=== PATIENT | male | born 1940 | race Caucasian/White ===

== ENCOUNTER 2018-06-20 10:21 | Inpatient (IN) ==
[2018-06-20] MEDS ORDERED: ONDANSETRON 4 MG/2 ML VIAL IV PRN (11:48)
[2018-06-20] MEDS ORDERED: DUTASTERIDE 0.5 MG CAPSULE PO PRN (11:53)
[2018-06-20] MEDS ORDERED: BISACODYL 5 MG TABLET PO ONE (12:00)
[2018-06-20 12:45] LABS: Basophils # 0.1 10*3/uL (0.0-0.2); Eosinophils # 0.9 10*3/uL (0.0-0.87); Eosinophils % 12.7 % (0.00-10.9); Hemoglobin 9.6 GM/DL (14.0-18.0); Immature Granulocytes % 0.4 %; Immature Granulocytes Absolute 0.03 #; Lymphocytes # 1.4 10*3/uL (1.4-4.0); Lymphocytes % 20.1 % (21.2-54.2); Mean Corpuscular Hemoglobin 30 PG (27-34); Mean Corpuscular Volume 92.6 FL (87-102); Mean Platelet Volume 10.9 FL (9.6-12.0); Monocytes # 0.9 10*3/uL (0.11-0.8); Monocytes % 12.4 % (1.7-12.7); Neutrophils # 3.6 10*3/uL (1.4-7.4); Neutrophils % 53.4 % (38.7-73.9); Platelet Count 143 T/CUMM (130-400); Red Blood Count 3.24 MC/CUMM (3.8-5.5); Red Cell Distribution Width 14.5 % (9.3-17.3); White Blood Count 6.8 T/CUMM (4-12)
[2018-06-20 13:12] LABS: Calcium 8.3 MG/DL (8.5-10.1); INR 1.4; Osmolality,Calculated 275.1 MOS/KG (273-304); PT Patient Result 14.8 SECS; Potassium 4.5 MMOL/L (3.5-5.1)
[2018-06-20 13:28] LABS: Eosinophils 11 % (0-10); Hypochromasia Slight; Lymphocytes 23 % (20-55); Microcytosis Slight; Ovalocytes Slight; Platelet Estimate Adequate; Reactive Lymphocytes Few; Segmented Neutrophils 58 % (50-85); Total Cells Counted 100
[2018-06-20] MEDS: HEPARIN DRIP 25,000 UNITS/500 ML PREMIX IV SCH (14:02)
[2018-06-20] MEDS: traMADol 50 MG TABLET PO SCH ×2 (14:50→20:46)
[2018-06-20] MEDS ORDERED: POLYETHYLENE GLYCOL POWDER 255 GM BOTTLE PO ONE (15:00)
[2018-06-20] MEDS: MUPIROCIN 2% OINT 22 GM TUBE TOP SCH ×2 (18:56→20:47)
[2018-06-20] MEDS: CARVEDILOL 6.25 MG TABLET PO SCH (20:46)
[2018-06-20] MEDS ORDERED: MAGNESIUM CITRATE 300 ML BOTTLE PO ONE (21:00)
[2018-06-21] MEDS: LEVOTHYROXINE 50 MCG TABLET PO SCH (06:15)
[2018-06-21 07:45] LABS: Eosinophils % 14.9 % (0.00-10.9); Hematocrit 28.5 VOL% (42.0-52.0); Hemoglobin 9.1 GM/DL (14.0-18.0); Lymphocytes % 23.5 % (21.2-54.2); Mean Corpuscular HGB Conc 31.9 GM/DL (32-36); Mean Corpuscular Hemoglobin 29 PG (27-34); Mean Corpuscular Volume 92.2 FL (87-102); Mean Platelet Volume 10.6 FL (9.6-12.0); Monocytes % 11.4 % (1.7-12.7); Neutrophils % 48.9 % (38.7-73.9); Platelet Count 163 T/CUMM (130-400); Red Blood Count 3.09 MC/CUMM (3.8-5.5); Red Cell Distribution Width 14.5 % (9.3-17.3); White Blood Count 5.8 T/CUMM (4-12)
[2018-06-21 07:46] LABS: Basophils # 0.1 10*3/uL (0.0-0.2); Eosinophils # 0.9 10*3/uL (0.0-0.87); INR 1.4; Immature Granulocytes % 0.3 %; Immature Granulocytes Absolute 0.02 #; Lymphocytes # 1.4 10*3/uL (1.4-4.0); Monocytes # 0.7 10*3/uL (0.11-0.8); Neutrophils # 2.8 10*3/uL (1.4-7.4); PT Patient Result 14.1 SECS
[2018-06-21 08:01] LABS: Osmolality,Calculated 275.8 MOS/KG (273-304); Potassium 4.4 MMOL/L (3.5-5.1)
[2018-06-21 08:37] LABS: Band Neutrophils 4 % (0-10); Eosinophils 8 % (0-10); Lymphocytes 24 % (20-55); Platelet Estimate Normal; Poikilocytosis Slight; Segmented Neutrophils 59 % (50-85); Total Cells Counted 100
[2018-06-21 08:38] LABS: Anisocytosis 1+
[2018-06-21] MEDS ORDERED: PROPOFOL 200 MG/20 ML VIAL IV ONE (09:25)
[2018-06-21] MEDS ORDERED: LIDOCAINE 100 MG/5 ML SYRINGE ONE (09:25)
[2018-06-21] MEDS: TORSEMIDE 20 MG TABLET PO SCH (12:27)
[2018-06-21] MEDS: CARVEDILOL 6.25 MG TABLET PO SCH ×2 (12:27→20:48)
[2018-06-21] MEDS: traMADol 50 MG TABLET PO SCH ×3 (12:27→20:48)
[2018-06-21] MEDS: MUPIROCIN 2% OINT 22 GM TUBE TOP SCH ×3 (12:28→20:49)
[2018-06-21] MEDS: TAMSULOSIN 0.4 MG CAPSULE PO SCH (12:28)
[2018-06-22] MEDS: LEVOTHYROXINE 50 MCG TABLET PO SCH (06:06)
[2018-06-22] MEDS ORDERED: PROPOFOL 200 MG/20 ML VIAL IV ONE (09:00)
[2018-06-22] MEDS ORDERED: LIDOCAINE 2% 5 ML VIAL ONE (09:00)
[2018-06-22] MEDS: TORSEMIDE 20 MG TABLET PO SCH (13:07)
[2018-06-22] MEDS: CARVEDILOL 6.25 MG TABLET PO SCH ×2 (13:07→21:06)
[2018-06-22] MEDS: TAMSULOSIN 0.4 MG CAPSULE PO SCH (13:08)
[2018-06-22] MEDS: MUPIROCIN 2% OINT 22 GM TUBE TOP SCH ×3 (13:08→21:06)
[2018-06-22] MEDS: traMADol 50 MG TABLET PO SCH ×3 (13:08→21:07)
[2018-06-22] MEDS: IRON SUCROSE 200 MG in SODIUM CHLORIDE 0.9% 100 ML IV SCH (13:30)
[2018-06-22] MEDS: HEPARIN DRIP 25,000 UNITS/500 ML PREMIX IV SCH ×2 (14:40→17:00)
[2018-06-22] MEDS: WARFARIN 5 MG TABLET PO SCH (18:45)
[2018-06-23] MEDS: HEPARIN DRIP 25,000 UNITS/500 ML PREMIX IV SCH ×2 (01:40→18:40)
[2018-06-23] MEDS: LEVOTHYROXINE 50 MCG TABLET PO SCH (08:03)
[2018-06-23 09:29] LABS: INR 1.3; PT Patient Result 13.5 SECS
[2018-06-23] MEDS: traMADol 50 MG TABLET PO SCH ×3 (09:30→21:21)
[2018-06-23] MEDS: IRON SUCROSE 200 MG in SODIUM CHLORIDE 0.9% 100 ML IV SCH (09:31)
[2018-06-23] MEDS: TORSEMIDE 20 MG TABLET PO SCH (09:31)
[2018-06-23] MEDS: CARVEDILOL 6.25 MG TABLET PO SCH ×2 (09:31→21:07)
[2018-06-23] MEDS: TAMSULOSIN 0.4 MG CAPSULE PO SCH (09:31)
[2018-06-23] MEDS: WARFARIN 5 MG TABLET PO SCH (19:17)
[2018-06-23] MEDS: MUPIROCIN 2% OINT 22 GM TUBE TOP SCH ×2 (21:08→22:08)
[2018-06-24] MEDS: LEVOTHYROXINE 50 MCG TABLET PO SCH (06:34)
[2018-06-24] MEDS: IRON SUCROSE 200 MG in SODIUM CHLORIDE 0.9% 100 ML IV SCH (08:44)
[2018-06-24] MEDS: TORSEMIDE 20 MG TABLET PO SCH (09:00)
[2018-06-24] MEDS: TAMSULOSIN 0.4 MG CAPSULE PO SCH (09:00)
[2018-06-24] MEDS: traMADol 50 MG TABLET PO SCH ×3 (09:00→20:07)
[2018-06-24] MEDS: CARVEDILOL 6.25 MG TABLET PO SCH ×2 (09:30→20:06)
[2018-06-24] MEDS ORDERED: COLCHICINE 0.6 MG TABLET PO ONE ×2 (16:24→18:53)
[2018-06-24] MEDS: WARFARIN 5 MG TABLET PO SCH (18:50)
[2018-06-24] MEDS: MUPIROCIN 2% OINT 22 GM TUBE TOP SCH ×3 (20:05→20:09)
[2018-06-25] MEDS: HEPARIN DRIP 25,000 UNITS/500 ML PREMIX IV SCH ×2 (00:13→09:24)
[2018-06-25 06:28] LABS: INR 1.6; PT Patient Result 16.8 SECS
[2018-06-25] MEDS: LEVOTHYROXINE 50 MCG TABLET PO SCH (06:48)
[2018-06-25] MEDS: CARVEDILOL 6.25 MG TABLET PO SCH ×2 (08:30→21:22)
[2018-06-25] MEDS: TAMSULOSIN 0.4 MG CAPSULE PO SCH (08:30)
[2018-06-25] MEDS: TORSEMIDE 20 MG TABLET PO SCH (08:30)
[2018-06-25] MEDS: MUPIROCIN 2% OINT 22 GM TUBE TOP SCH ×3 (08:31→21:22)
[2018-06-25] MEDS: traMADol 50 MG TABLET PO SCH ×5 (10:38→21:22)
[2018-06-25] MEDS: WARFARIN 5 MG TABLET PO SCH (17:51)
[2018-06-26] MEDS: HEPARIN DRIP 25,000 UNITS/500 ML PREMIX IV SCH (04:14)
[2018-06-26] MEDS: LEVOTHYROXINE 50 MCG TABLET PO SCH (06:50)
[2018-06-26] MEDS: traMADol 50 MG TABLET PO SCH ×3 (10:02→20:50)
[2018-06-26] MEDS: CARVEDILOL 6.25 MG TABLET PO SCH ×2 (10:02→20:50)
[2018-06-26] MEDS: MUPIROCIN 2% OINT 22 GM TUBE TOP SCH ×3 (10:03→20:51)
[2018-06-26] MEDS: TAMSULOSIN 0.4 MG CAPSULE PO SCH (10:03)
[2018-06-26] MEDS: TORSEMIDE 20 MG TABLET PO SCH (10:03)
[2018-06-26] MEDS ORDERED: HYDROCORTISONE 1% CREAM 28 GM TUBE TOP PRN (10:12)
[2018-06-26 10:28] LABS: Basophils % 0.7 % (0.0-0.8); Eosinophils # 0.6 10*3/uL (0.0-0.87); Eosinophils % 10.9 % (0.00-10.9); Hematocrit 24.4 VOL% (42.0-52.0); Hemoglobin 8.1 GM/DL (14.0-18.0); Immature Granulocytes % 0.7 %; Immature Granulocytes Absolute 0.04 #; Lymphocytes # 1.5 10*3/uL (1.4-4.0); Lymphocytes % 25.3 % (21.2-54.2); Mean Corpuscular HGB Conc 33.2 GM/DL (32-36); Mean Corpuscular Hemoglobin 30 PG (27-34); Mean Corpuscular Volume 89.4 FL (87-102); Mean Platelet Volume 11.6 FL (9.6-12.0); Monocytes % 16.5 % (1.7-12.7); Neutrophils # 2.7 10*3/uL (1.4-7.4); Neutrophils % 45.9 % (38.7-73.9); Platelet Count 152 T/CUMM (130-400); Red Blood Count 2.73 MC/CUMM (3.8-5.5); Red Cell Distribution Width 14.6 % (9.3-17.3); White Blood Count 5.8 T/CUMM (4-12)
[2018-06-26 10:36] LABS: Calcium 8.6 MG/DL (8.5-10.1); Osmolality,Calculated 275.1 MOS/KG (273-304)
[2018-06-26 10:54] LABS: Band Neutrophils 4 % (0-10); Eosinophils 18 % (0-10); Lymphocytes 21 % (20-55); Platelet Estimate Adequate; Segmented Neutrophils 49 % (50-85); Total Cells Counted 100
[2018-06-26 10:55] LABS: Anisocytosis 1+
[2018-06-26] MEDS ORDERED: MAGNESIUM SULF RIDER 4 GM in PREMIX 1 EACH IV PRN (11:57)
[2018-06-26] MEDS ORDERED: MAGNESIUM SULF RIDER 2 GM in PREMIX 1 EACH IV PRN (11:57)
[2018-06-26] MEDS ORDERED: SODIUM CHLORIDE 0.9% 1,000 ML IV PRN (12:14)
[2018-06-26] MEDS ORDERED: ALBUTEROL 1.25 MG/3 ML NEB RESP TX PRN (13:55)
[2018-06-26] MEDS: WARFARIN 5 MG TABLET PO SCH (17:30)
[2018-06-26] MEDS: MAGNESIUM CHLORIDE 64 MG TABLET PO SCH (20:50)
[2018-06-27 06:11] LABS: Basophils % 0.7 % (0.0-0.8); Eosinophils # 0.8 10*3/uL (0.0-0.87); Hematocrit 28.6 VOL% (42.0-52.0); Hemoglobin 9.3 GM/DL (14.0-18.0); Immature Granulocytes % 0.7 %; Immature Granulocytes Absolute 0.04 #; Lymphocytes # 1.5 10*3/uL (1.4-4.0); Lymphocytes % 25.9 % (21.2-54.2); Mean Corpuscular HGB Conc 32.5 GM/DL (32-36); Mean Corpuscular Hemoglobin 29 PG (27-34); Mean Corpuscular Volume 89.9 FL (87-102); Mean Platelet Volume 10.7 FL (9.6-12.0); Monocytes % 17.1 % (1.7-12.7); Neutrophils # 2.4 10*3/uL (1.4-7.4); Neutrophils % 41.6 % (38.7-73.9); Platelet Count 159 T/CUMM (130-400); Red Blood Count 3.18 MC/CUMM (3.8-5.5); Red Cell Distribution Width 14.6 % (9.3-17.3); White Blood Count 5.8 T/CUMM (4-12)
[2018-06-27 06:25] LABS: INR 2.2
[2018-06-27] MEDS: LEVOTHYROXINE 50 MCG TABLET PO SCH (06:34)
[2018-06-27 06:38] LABS: Eosinophils 19 % (0-10); Hypochromasia 1+; Lymphocytes 19 % (20-55); Platelet Estimate Normal; Segmented Neutrophils 45 % (50-85); Total Cells Counted 100
[2018-06-27] MEDS ORDERED: PANTOPRAZOLE 40 MG TABLET PO SCH (09:00)
[2018-06-27] MEDS: TORSEMIDE 20 MG TABLET PO SCH (09:11)
[2018-06-27] MEDS: TAMSULOSIN 0.4 MG CAPSULE PO SCH (09:11)
[2018-06-27] MEDS: CARVEDILOL 6.25 MG TABLET PO SCH (09:11)
[2018-06-27] MEDS: MAGNESIUM CHLORIDE 64 MG TABLET PO SCH (09:11)
[2018-06-27] MEDS: MUPIROCIN 2% OINT 22 GM TUBE TOP SCH (09:11)
[2018-06-27] MEDS: traMADol 50 MG TABLET PO SCH (09:12)
[2018-06-27] MEDS: HEPARIN DRIP 25,000 UNITS/500 ML PREMIX IV SCH (11:30)
[2018-06-27 13:44] VITALS: BP 95/52
== END 2018-06-27 15:40 | disposition home or self-care (01) | DRG 812 ==
LOC: N.2W → N.5E 10:21
PROVIDERS: ADMIT Internal Medicine Gastroenterology; ATTEND Internal Medicine Gastroenterology

== ENCOUNTER 2019-03-13 10:34 | Inpatient (IN) ==
[2019-03-13] MEDS ORDERED: traZODone 50 MG TABLET PO PRN (14:16)
[2019-03-13] MEDS ORDERED: DOCUSATE SODIUM 100 MG CAPSULE PO PRN (14:16)
[2019-03-13 14:49] LABS: Basophils # 0.1 10*3/uL (0.0-0.2); Basophils % 0.7 % (0.0-0.8); Eosinophils # 0.5 10*3/uL (0.0-0.87); Eosinophils % 5.9 % (0.00-10.9); Hematocrit 26.1 VOL% (42.0-52.0); Hemoglobin 8.5 GM/DL (14.0-18.0); Immature Granulocytes % 1.3 %; Immature Granulocytes Absolute 0.12 #; Lymphocytes # 1.2 10*3/uL (1.4-4.0); Lymphocytes % 12.8 % (21.2-54.2); Mean Corpuscular HGB Conc 32.6 GM/DL (32-36); Mean Corpuscular Volume 91.6 FL (87-102); Mean Platelet Volume 9.7 FL (9.6-12.0); Monocytes % 14.4 % (1.7-12.7); Neutrophils % 64.9 % (38.7-73.9); Platelet Count 319 T/CUMM (130-400); Red Blood Count 2.85 MC/CUMM (3.8-5.5); Red Cell Distribution Width 14.7 % (9.3-17.3); White Blood Count 9.2 T/CUMM (4-12)
[2019-03-13 15:09] LABS: Albumin 2.8 G/DL (3.4-5.0); Bilirubin,Total 1.8 MG/DL (0.2-1.0); Osmolality,Calculated 249.6 MOS/KG (273-304); Total Protein 6.6 G/DL (6.4-8.3)
[2019-03-13] MEDS ORDERED: POLYETHYLENE GLYCOL POWDER 17 GM PACK PO SCH (16:30)
[2019-03-13] MEDS: FUROSEMIDE 40 MG/4 ML VIAL IV SCH (18:02)
[2019-03-13] MEDS: DOCUSATE SODIUM 100 MG CAPSULE PO SCH (18:02)
[2019-03-13 18:43] LABS: INR 1.5; PT Patient Result 16.4 SECS
[2019-03-13] MEDS: POLYETHYLENE GLYCOL POWDER 17 GM PACK PO SCH (20:32)
[2019-03-13] MEDS: ENOXAPARIN 100 MG/ML SYRINGE SUBCUT SCH (21:30)
[2019-03-14 05:27] LABS: Basophils # 0.1 10*3/uL (0.0-0.2); Basophils % 1.1 % (0.0-0.8); Eosinophils # 0.6 10*3/uL (0.0-0.87); Eosinophils % 7.7 % (0.00-10.9); Hematocrit 26.6 VOL% (42.0-52.0); Hemoglobin 8.5 GM/DL (14.0-18.0); Immature Granulocytes % 1.7 %; Immature Granulocytes Absolute 0.13 #; Lymphocytes # 1.2 10*3/uL (1.4-4.0); Lymphocytes % 15.9 % (21.2-54.2); Mean Corpuscular Volume 92.7 FL (87-102); Mean Platelet Volume 9.9 FL (9.6-12.0); Monocytes % 16.9 % (1.7-12.7); Neutrophils % 56.7 % (38.7-73.9); Platelet Count 340 T/CUMM (130-400); Red Blood Count 2.87 MC/CUMM (3.8-5.5); Red Cell Distribution Width 14.8 % (9.3-17.3); White Blood Count 7.5 T/CUMM (4-12)
[2019-03-14 06:15] LABS: Calcium 7.8 MG/DL (8.5-10.1); Osmolality,Calculated 252.4 MOS/KG (273-304); Thyroid Stimulating Hormone 9.08 uIU/ml (0.358-3.74)
[2019-03-14 06:33] LABS: Band Neutrophils 1 % (0-10); Eosinophils 4 % (0-10); Hypochromasia 1+; Lymphocytes 13 % (20-55); Ovalocytes Slight; Platelet Estimate Adequate; Segmented Neutrophils 68 % (50-85); Total Cells Counted 100
[2019-03-14] MEDS: PANTOPRAZOLE 40 MG TABLET PO SCH (09:52)
[2019-03-14] MEDS: FUROSEMIDE 40 MG/4 ML VIAL IV SCH (09:52)
[2019-03-14] MEDS: DOCUSATE SODIUM 100 MG CAPSULE PO SCH ×2 (09:52→22:58)
[2019-03-14] MEDS: ENOXAPARIN 100 MG/ML SYRINGE SUBCUT SCH ×2 (09:54→22:57)
[2019-03-14] MEDS: POLYETHYLENE GLYCOL POWDER 17 GM PACK PO SCH ×2 (09:58→22:57)
[2019-03-14] MEDS: ASPIRIN EC 81 MG TABLET PO SCH (11:08)
[2019-03-14] MEDS: CARVEDILOL 6.25 MG TABLET PO SCH ×2 (11:08→22:58)
[2019-03-14] MEDS: WARFARIN 3 MG TABLET PO SCH (17:37)
[2019-03-14] MEDS: PARoxetine 10 MG TABLET PO SCH (17:37)
[2019-03-14] MEDS: SODIUM CHLORIDE 0.65% NASAL SPRAY 45 ML BOTTLE BOTH NARES SCH (22:59)
[2019-03-14] MEDS: MUPIROCIN 2% OINT 22 GM TUBE TOP SCH (23:08)
[2019-03-15 05:43] LABS: Basophils # 0.1 10*3/uL (0.0-0.2); Basophils % 0.9 % (0.0-0.8); Eosinophils # 0.5 10*3/uL (0.0-0.87); Eosinophils % 7.1 % (0.00-10.9); Hematocrit 25.2 VOL% (42.0-52.0); Hemoglobin 8.2 GM/DL (14.0-18.0); Immature Granulocytes % 1.3 %; Immature Granulocytes Absolute 0.09 #; Lymphocytes # 1.5 10*3/uL (1.4-4.0); Lymphocytes % 21.1 % (21.2-54.2); Mean Corpuscular HGB Conc 32.5 GM/DL (32-36); Mean Corpuscular Volume 91.6 FL (87-102); Mean Platelet Volume 9.4 FL (9.6-12.0); Monocytes % 20.6 % (1.7-12.7); Platelet Count 319 T/CUMM (130-400); Red Blood Count 2.75 MC/CUMM (3.8-5.5); Red Cell Distribution Width 14.6 % (9.3-17.3); White Blood Count 6.9 T/CUMM (4-12)
[2019-03-15 05:56] LABS: INR 1.4; PT Patient Result 14.7 SECS
[2019-03-15 06:01] LABS: Calcium 7.8 MG/DL (8.5-10.1); Osmolality,Calculated 254.4 MOS/KG (273-304)
[2019-03-15] MEDS: LEVOTHYROXINE 88 MCG TABLET PO SCH (06:07)
[2019-03-15 06:16] LABS: Eosinophils 17 % (0-10); Hypochromasia 1+; Lymphocytes 18 % (20-55); Metamyelocytes 1 %; Segmented Neutrophils 52 % (50-85); Total Cells Counted 100
[2019-03-15 06:17] LABS: Microcytosis Slight; Platelet Estimate Normal
[2019-03-15] MEDS: PANTOPRAZOLE 40 MG TABLET PO SCH (09:30)
[2019-03-15] MEDS: DOCUSATE SODIUM 100 MG CAPSULE PO SCH ×2 (09:30→22:26)
[2019-03-15] MEDS: PARoxetine 10 MG TABLET PO SCH (09:30)
[2019-03-15] MEDS: ASPIRIN EC 81 MG TABLET PO SCH (09:30)
[2019-03-15] MEDS: FUROSEMIDE 40 MG TABLET PO SCH (09:30)
[2019-03-15] MEDS: SODIUM CHLORIDE 0.65% NASAL SPRAY 45 ML BOTTLE BOTH NARES SCH ×3 (09:31→22:27)
[2019-03-15] MEDS: MAGNESIUM CHLORIDE 64 MG TABLET PO SCH (09:31)
[2019-03-15] MEDS: POLYETHYLENE GLYCOL POWDER 17 GM PACK PO SCH ×2 (09:31→22:26)
[2019-03-15] MEDS: MUPIROCIN 2% OINT 22 GM TUBE TOP SCH ×3 (09:31→22:28)
[2019-03-15] MEDS: TAMSULOSIN 0.4 MG CAPSULE PO SCH (09:31)
[2019-03-15] MEDS: ENOXAPARIN 100 MG/ML SYRINGE SUBCUT SCH ×2 (09:32→22:26)
[2019-03-15 11:03] LABS: Apearance,Urine Slightly Hazy (Clear); Bacteria,Urine Occasional /HPF (Few); Bilirubin,Urine Negative (Negative); Blood, Urine Large mg/dL (Negative); Glucose,Urine (UA) Negative (Negative); Hyaline Casts,Urine 13 /LPF (0-3); Ketones,Urine Negative (Negative); Mucus,Urine Occasional /LPF (Occasional); Nitrite,Urine Negative (Negative); Protein,Urine 30 MG/DL; RBC,Urine 77 /HPF (0-4); Urine Color Amber (Yellow); Urine Specific Gravity 1.014 (1.001-1.035); WBC,Urine 57 /HPF (0-6)
[2019-03-15] MEDS: CARVEDILOL 6.25 MG TABLET PO SCH ×2 (17:21→22:27)
[2019-03-15] MEDS: WARFARIN 3 MG TABLET PO SCH (17:26)
[2019-03-15] MEDS ORDERED: LACTULOSE 20 GM/30 ML UDCUP PO ONE (21:44)
[2019-03-15] MEDS ORDERED: SODIUM PHOSPHATE ENEMA 133 ML BOTTLE RECTAL PRN (21:46)
[2019-03-16] MEDS ORDERED: ALBUTEROL 0.63 MG/3 ML NEB RESP TX ONE (03:57)
[2019-03-16 05:14] LABS: Basophils # 0.1 10*3/uL (0.0-0.2); Eosinophils # 0.6 10*3/uL (0.0-0.87); Eosinophils % 8.4 % (0.00-10.9); Hematocrit 25.4 VOL% (42.0-52.0); Hemoglobin 8.4 GM/DL (14.0-18.0); Immature Granulocytes % 1.2 %; Immature Granulocytes Absolute 0.08 #; Lymphocytes # 1.4 10*3/uL (1.4-4.0); Lymphocytes % 20.9 % (21.2-54.2); Mean Corpuscular HGB Conc 33.1 GM/DL (32-36); Neutrophils % 48.5 % (38.7-73.9); Platelet Count 335 T/CUMM (130-400); Red Blood Count 2.79 MC/CUMM (3.8-5.5); Red Cell Distribution Width 14.9 % (9.3-17.3); White Blood Count 6.8 T/CUMM (4-12)
[2019-03-16 05:16] LABS: INR 1.4; PT Patient Result 14.8 SECS
[2019-03-16 05:25] LABS: Calcium 7.5 MG/DL (8.5-10.1); Osmolality,Calculated 256.2 MOS/KG (273-304)
[2019-03-16 05:52] LABS: Band Neutrophils 4 % (0-10); Eosinophils 7 % (0-10); Lymphocytes 19 % (20-55); Metamyelocytes 2 %; Platelet Estimate Normal; Segmented Neutrophils 44 % (50-85); Total Cells Counted 100
[2019-03-16] MEDS: LEVOTHYROXINE 88 MCG TABLET PO SCH (06:21)
[2019-03-16] MEDS ORDERED: SODIUM CHLORIDE 0.9% 1,000 ML IV SCH (09:30)
[2019-03-16] MEDS: FUROSEMIDE 40 MG TABLET PO SCH (11:02)
[2019-03-16] MEDS: ENOXAPARIN 100 MG/ML SYRINGE SUBCUT SCH ×2 (11:06→21:51)
[2019-03-16] MEDS: SODIUM CHLORIDE 0.65% NASAL SPRAY 45 ML BOTTLE BOTH NARES SCH ×3 (11:06→21:50)
[2019-03-16] MEDS: MUPIROCIN 2% OINT 22 GM TUBE TOP SCH ×3 (11:06→21:49)
[2019-03-16] MEDS ORDERED: SALIVA SUBSTITUTE SPRAY 60 ML CAN SWISH/SPIT PRN (14:42)
[2019-03-16] MEDS ORDERED: ACETAMINOPHEN 650 MG SUPP RECTAL PRN (14:49)
[2019-03-16] MEDS: PARoxetine 10 MG TABLET PO SCH (14:58)
[2019-03-16] MEDS: DOCUSATE SODIUM 100 MG CAPSULE PO SCH ×2 (14:59→21:51)
[2019-03-16] MEDS: TAMSULOSIN 0.4 MG CAPSULE PO SCH (14:59)
[2019-03-16] MEDS: MAGNESIUM CHLORIDE 64 MG TABLET PO SCH (14:59)
[2019-03-16] MEDS: CARVEDILOL 6.25 MG TABLET PO SCH ×2 (14:59→21:51)
[2019-03-16] MEDS: PANTOPRAZOLE 40 MG TABLET PO SCH (14:59)
[2019-03-16] MEDS: ASPIRIN EC 81 MG TABLET PO SCH (14:59)
[2019-03-16] MEDS: POLYETHYLENE GLYCOL POWDER 17 GM PACK PO SCH ×2 (15:00→21:52)
[2019-03-16] MEDS: ACETAMINOPHEN 325 MG TABLET PO PRN (15:03)
[2019-03-16] MEDS: WARFARIN 10 MG TABLET PO SCH (17:35)
[2019-03-16] MEDS: MELATONIN 3 MG TABLET PO SCH (21:50)
[2019-03-17 05:01] LABS: Basophils # 0.1 10*3/uL (0.0-0.2); Basophils % 1.1 % (0.0-0.8); Eosinophils # 0.6 10*3/uL (0.0-0.87); Eosinophils % 9.7 % (0.00-10.9); Hematocrit 25.5 VOL% (42.0-52.0); Hemoglobin 8.3 GM/DL (14.0-18.0); Immature Granulocytes % 1.3 %; Immature Granulocytes Absolute 0.08 #; Lymphocytes # 1.1 10*3/uL (1.4-4.0); Lymphocytes % 18.5 % (21.2-54.2); Mean Corpuscular HGB Conc 32.5 GM/DL (32-36); Mean Corpuscular Volume 92.7 FL (87-102); Mean Platelet Volume 9.8 FL (9.6-12.0); Monocytes % 18.4 % (1.7-12.7); Platelet Count 297 T/CUMM (130-400); Red Blood Count 2.75 MC/CUMM (3.8-5.5); Red Cell Distribution Width 14.8 % (9.3-17.3); White Blood Count 6.1 T/CUMM (4-12)
[2019-03-17 05:08] LABS: INR 1.6
[2019-03-17 05:19] LABS: Calcium 7.6 MG/DL (8.5-10.1); Osmolality,Calculated 258.9 MOS/KG (273-304)
[2019-03-17 05:40] LABS: Eosinophils 10 % (0-10); Lymphocytes 18 % (20-55); Microcytosis 1+; Segmented Neutrophils 58 % (50-85); Total Cells Counted 100
[2019-03-17 05:41] LABS: Hypochromasia 1+; Platelet Estimate Normal
[2019-03-17 05:42] LABS: Atypical Lymphocytes Few; Ovalocytes Slight
[2019-03-17] MEDS: LEVOTHYROXINE 88 MCG TABLET PO SCH (06:33)
[2019-03-17] MEDS: ENOXAPARIN 100 MG/ML SYRINGE SUBCUT SCH ×2 (09:03→21:04)
[2019-03-17] MEDS: DOCUSATE SODIUM 100 MG CAPSULE PO SCH ×2 (09:03→21:04)
[2019-03-17] MEDS: PANTOPRAZOLE 40 MG TABLET PO SCH (09:03)
[2019-03-17] MEDS: CARVEDILOL 6.25 MG TABLET PO SCH ×2 (09:03→21:03)
[2019-03-17] MEDS: TAMSULOSIN 0.4 MG CAPSULE PO SCH (09:04)
[2019-03-17] MEDS: MAGNESIUM CHLORIDE 64 MG TABLET PO SCH (09:04)
[2019-03-17] MEDS: PARoxetine 10 MG TABLET PO SCH (09:05)
[2019-03-17] MEDS: ASPIRIN EC 81 MG TABLET PO SCH (09:05)
[2019-03-17] MEDS: MUPIROCIN 2% OINT 22 GM TUBE TOP SCH ×3 (09:06→21:08)
[2019-03-17] MEDS: DEXTROSE 5% 1,000 ML IV SCH (09:16)
[2019-03-17] MEDS: SODIUM CHLORIDE 0.65% NASAL SPRAY 45 ML BOTTLE BOTH NARES SCH ×3 (09:16→21:10)
[2019-03-17] MEDS: POLYETHYLENE GLYCOL POWDER 17 GM PACK PO SCH ×2 (09:17→21:04)
[2019-03-17] MEDS ORDERED: COLCHICINE 0.6 MG CAPSULE PO ONE (09:48)
[2019-03-17] MEDS ORDERED: SODIUM CHLORIDE 0.9% 1,000 ML IV SCH (10:00)
[2019-03-17] MEDS: DEXAMETHASONE 4 MG/1 ML VIAL IV SCH ×2 (11:15→21:05)
[2019-03-17] MEDS: NYSTATIN 500,000 UNIT/5 ML UDCUP SWISH/SWAL SCH ×3 (15:42→21:11)
[2019-03-17] MEDS: ROTIGOTINE TRANSDERM SCH (15:42)
[2019-03-17] MEDS: COLCHICINE 0.6 MG CAPSULE PO SCH (21:03)
[2019-03-17] MEDS: WARFARIN 10 MG TABLET PO SCH (21:03)
[2019-03-17] MEDS: MELATONIN 3 MG TABLET PO SCH (21:03)
[2019-03-18 04:58] LABS: Basophils % 0.4 % (0.0-0.8); Eosinophils % 0.2 % (0.00-10.9); Hematocrit 28.4 VOL% (42.0-52.0); Hemoglobin 8.9 GM/DL (14.0-18.0); Immature Granulocytes % 1.2 %; Immature Granulocytes Absolute 0.06 #; Lymphocytes # 0.5 10*3/uL (1.4-4.0); Lymphocytes % 10.5 % (21.2-54.2); Mean Corpuscular HGB Conc 31.3 GM/DL (32-36); Mean Corpuscular Volume 94.4 FL (87-102); Mean Platelet Volume 9.5 FL (9.6-12.0); Monocytes % 6.3 % (1.7-12.7); Neutrophils % 81.4 % (38.7-73.9); Platelet Count 286 T/CUMM (130-400); Red Blood Count 3.01 MC/CUMM (3.8-5.5); Red Cell Distribution Width 14.6 % (9.3-17.3); White Blood Count 4.9 T/CUMM (4-12)
[2019-03-18 05:14] LABS: Calcium 7.8 MG/DL (8.5-10.1); Osmolality,Calculated 266.8 MOS/KG (273-304)
[2019-03-18] MEDS: LEVOTHYROXINE 88 MCG TABLET PO SCH (05:54)
[2019-03-18] MEDS: DEXTROSE 5% 1,000 ML IV SCH ×3 (05:59→22:40)
[2019-03-18] MEDS: MAGNESIUM CHLORIDE 64 MG TABLET PO SCH (08:57)
[2019-03-18] MEDS: DOCUSATE SODIUM 100 MG CAPSULE PO SCH ×2 (08:57→22:41)
[2019-03-18] MEDS: PANTOPRAZOLE 40 MG TABLET PO SCH (08:58)
[2019-03-18] MEDS: CARVEDILOL 6.25 MG TABLET PO SCH ×3 (08:58→22:41)
[2019-03-18] MEDS: ASPIRIN EC 81 MG TABLET PO SCH (08:58)
[2019-03-18] MEDS: COLCHICINE 0.6 MG CAPSULE PO SCH ×2 (09:00→22:40)
[2019-03-18] MEDS: MUPIROCIN 2% OINT 22 GM TUBE TOP SCH ×3 (09:00→22:41)
[2019-03-18] MEDS: NYSTATIN 500,000 UNIT/5 ML UDCUP SWISH/SWAL SCH ×4 (09:01→22:42)
[2019-03-18] MEDS: TAMSULOSIN 0.4 MG CAPSULE PO SCH (09:01)
[2019-03-18] MEDS: ROTIGOTINE TRANSDERM SCH (09:01)
[2019-03-18] MEDS: SODIUM CHLORIDE 0.65% NASAL SPRAY 45 ML BOTTLE BOTH NARES SCH ×3 (09:02→22:42)
[2019-03-18] MEDS: POLYETHYLENE GLYCOL POWDER 17 GM PACK PO SCH ×2 (09:02→22:42)
[2019-03-18] MEDS: ENOXAPARIN 100 MG/ML SYRINGE SUBCUT SCH ×2 (09:02→22:42)
[2019-03-18 13:27] LABS: INR 3.2
[2019-03-18 13:29] LABS: PT Patient Result 34.8 SECS
[2019-03-18] MEDS: WARFARIN 7.5 MG TABLET PO SCH (17:03)
[2019-03-18] MEDS: MELATONIN 3 MG TABLET PO SCH (22:41)
[2019-03-19 04:24] LABS: Basophils % 0.1 % (0.0-0.8); Eosinophils % 0.1 % (0.00-10.9); Hematocrit 27.1 VOL% (42.0-52.0); Hemoglobin 8.8 GM/DL (14.0-18.0); Immature Granulocytes Absolute 0.12 #; Lymphocytes # 0.6 10*3/uL (1.4-4.0); Lymphocytes % 5.5 % (21.2-54.2); Mean Corpuscular HGB Conc 32.5 GM/DL (32-36); Mean Corpuscular Volume 92.2 FL (87-102); Mean Platelet Volume 10.2 FL (9.6-12.0); Monocytes % 9.4 % (1.7-12.7); Neutrophils % 83.9 % (38.7-73.9); Platelet Count 308 T/CUMM (130-400); Red Blood Count 2.94 MC/CUMM (3.8-5.5); Red Cell Distribution Width 14.8 % (9.3-17.3); White Blood Count 11.5 T/CUMM (4-12)
[2019-03-19 04:29] LABS: INR 4.2
[2019-03-19 04:32] LABS: PT Patient Result 45.1 SECS
[2019-03-19 04:41] LABS: Calcium 7.7 MG/DL (8.5-10.1); Osmolality,Calculated 265.1 MOS/KG (273-304)
[2019-03-19] MEDS: LEVOTHYROXINE 88 MCG TABLET PO SCH (07:35)
[2019-03-19] MEDS: DEXTROSE 5% 1,000 ML IV SCH ×3 (08:19→21:20)
[2019-03-19] MEDS: COLCHICINE 0.6 MG CAPSULE PO SCH ×2 (08:52→21:05)
[2019-03-19] MEDS: ASPIRIN EC 81 MG TABLET PO SCH (08:52)
[2019-03-19] MEDS: TAMSULOSIN 0.4 MG CAPSULE PO SCH (08:52)
[2019-03-19] MEDS: MAGNESIUM CHLORIDE 64 MG TABLET PO SCH (08:52)
[2019-03-19] MEDS: PANTOPRAZOLE 40 MG TABLET PO SCH (08:52)
[2019-03-19] MEDS: CARVEDILOL 6.25 MG TABLET PO SCH ×2 (08:52→21:05)
[2019-03-19] MEDS: DOCUSATE SODIUM 100 MG CAPSULE PO SCH ×2 (08:53→21:05)
[2019-03-19] MEDS: ROTIGOTINE TRANSDERM SCH (08:54)
[2019-03-19] MEDS: NYSTATIN 500,000 UNIT/5 ML UDCUP SWISH/SWAL SCH ×4 (08:54→21:05)
[2019-03-19] MEDS: MUPIROCIN 2% OINT 22 GM TUBE TOP SCH ×3 (08:55→21:20)
[2019-03-19] MEDS: SODIUM CHLORIDE 0.65% NASAL SPRAY 45 ML BOTTLE BOTH NARES SCH ×3 (08:55→21:20)
[2019-03-19] MEDS: ENOXAPARIN 100 MG/ML SYRINGE SUBCUT SCH ×2 (08:59→21:05)
[2019-03-19] MEDS: POLYETHYLENE GLYCOL POWDER 17 GM PACK PO SCH ×2 (09:50→21:04)
[2019-03-19] MEDS: FUROSEMIDE 40 MG TABLET PO SCH (11:30)
[2019-03-19] MEDS: PARoxetine 10 MG TABLET PO SCH (13:40)
[2019-03-19] MEDS: ONDANSETRON 4 MG/2 ML VIAL IV PRN ×2 (13:45→20:05)
[2019-03-19] MEDS: MELATONIN 3 MG TABLET PO SCH (21:04)
[2019-03-19 22:31] LABS: Apearance,Urine Slightly Hazy (Clear); Bacteria,Urine Moderate /HPF (Few); Bilirubin,Urine Negative (Negative); Blood, Urine Large mg/dL (Negative); Glucose,Urine (UA) Negative (Negative); Hyaline Casts,Urine 57 /LPF (0-3); Ketones,Urine Negative (Negative); Mucus,Urine Occasional /LPF (Occasional); Nitrite,Urine Negative (Negative); Protein,Urine 100 MG/DL; RBC,Urine 49 /HPF (0-4); Urine Color Amber (Yellow); Urine Specific Gravity 1.015 (1.001-1.035); WBC,Urine 21 /HPF (0-6)
[2019-03-20] MEDS: cefTRIAXone 1,000 MG in SYRINGE 1 EACH IV SCH (01:26)
[2019-03-20 05:33] LABS: PT Patient Result 76.5 SECS
[2019-03-20 05:35] LABS: INR 7.2
[2019-03-20 06:03] LABS: Basophils % 0.4 % (0.0-0.8); Eosinophils # 0.3 10*3/uL (0.0-0.87); Hematocrit 27.9 VOL% (42.0-52.0); Hemoglobin 8.7 GM/DL (14.0-18.0); Immature Granulocytes % 1.4 %; Immature Granulocytes Absolute 0.14 #; Lymphocytes # 1.2 10*3/uL (1.4-4.0); Lymphocytes % 12.2 % (21.2-54.2); Mean Corpuscular HGB Conc 31.2 GM/DL (32-36); Mean Corpuscular Volume 94.9 FL (87-102); Mean Platelet Volume 10.5 FL (9.6-12.0); Monocytes % 14.5 % (1.7-12.7); Neutrophils % 68.5 % (38.7-73.9); Platelet Count 289 T/CUMM (130-400); Red Blood Count 2.94 MC/CUMM (3.8-5.5); Red Cell Distribution Width 14.9 % (9.3-17.3); White Blood Count 9.7 T/CUMM (4-12)
[2019-03-20 06:05] LABS: Calcium 7.6 MG/DL (8.5-10.1); Osmolality,Calculated 261.4 MOS/KG (273-304)
[2019-03-20] MEDS: LEVOTHYROXINE 88 MCG TABLET PO SCH (06:48)
[2019-03-20] MEDS: ROTIGOTINE TRANSDERM SCH (08:42)
[2019-03-20] MEDS: COLCHICINE 0.6 MG CAPSULE PO SCH ×2 (08:43→20:28)
[2019-03-20] MEDS: CARVEDILOL 6.25 MG TABLET PO SCH ×2 (08:43→20:29)
[2019-03-20] MEDS: TAMSULOSIN 0.4 MG CAPSULE PO SCH (08:44)
[2019-03-20] MEDS: PARoxetine 10 MG TABLET PO SCH (08:44)
[2019-03-20] MEDS: NYSTATIN 500,000 UNIT/5 ML UDCUP SWISH/SWAL SCH ×4 (08:45→20:29)
[2019-03-20] MEDS: SODIUM CHLORIDE 0.65% NASAL SPRAY 45 ML BOTTLE BOTH NARES SCH ×3 (08:46→20:29)
[2019-03-20] MEDS: MUPIROCIN 2% OINT 22 GM TUBE TOP SCH ×3 (08:46→20:29)
[2019-03-20] MEDS: ENOXAPARIN 100 MG/ML SYRINGE SUBCUT SCH (09:11)
[2019-03-20] MEDS: DOCUSATE SODIUM 100 MG CAPSULE PO SCH ×2 (09:11→20:29)
[2019-03-20] MEDS: POLYETHYLENE GLYCOL POWDER 17 GM PACK PO SCH ×2 (09:11→20:29)
[2019-03-20] MEDS: ASPIRIN EC 81 MG TABLET PO SCH (09:11)
[2019-03-20] MEDS: MAGNESIUM CHLORIDE 64 MG TABLET PO SCH (09:12)
[2019-03-20] MEDS: PANTOPRAZOLE 40 MG TABLET PO SCH (09:12)
[2019-03-20] MEDS: DEXTROSE 5% 1,000 ML IV SCH (09:33)
[2019-03-20] MEDS: ONDANSETRON 4 MG/2 ML VIAL IV PRN ×3 (09:33→20:28)
[2019-03-20] MEDS: FUROSEMIDE 40 MG TABLET PO SCH (11:14)
[2019-03-20] MEDS ORDERED: PHYTONADIONE 5 MG/5 ML ORAL.SYR PO ONE (17:07)
[2019-03-20] MEDS: WARFARIN 7.5 MG TABLET PO SCH (18:11)
[2019-03-20] MEDS: SODIUM CHLORIDE 0.9% 1,000 ML IV SCH (18:15)
[2019-03-20] MEDS: MELATONIN 3 MG TABLET PO SCH (20:28)
[2019-03-21] MEDS: cefTRIAXone 1,000 MG in SYRINGE 1 EACH IV SCH (00:15)
[2019-03-21 05:21] LABS: Basophils # 0.1 10*3/uL (0.0-0.2); Basophils % 0.6 % (0.0-0.8); Eosinophils # 0.6 10*3/uL (0.0-0.87); Eosinophils % 6.5 % (0.00-10.9); Hematocrit 27.3 VOL% (42.0-52.0); Hemoglobin 8.6 GM/DL (14.0-18.0); Immature Granulocytes % 2.3 %; Lymphocytes # 1.2 10*3/uL (1.4-4.0); Lymphocytes % 13.9 % (21.2-54.2); Mean Corpuscular HGB Conc 31.5 GM/DL (32-36); Mean Corpuscular Volume 94.8 FL (87-102); Mean Platelet Volume 9.8 FL (9.6-12.0); Monocytes % 15.1 % (1.7-12.7); Neutrophils % 61.6 % (38.7-73.9); Platelet Count 289 T/CUMM (130-400); Red Blood Count 2.88 MC/CUMM (3.8-5.5); White Blood Count 8.7 T/CUMM (4-12)
[2019-03-21 05:25] LABS: INR 2.3
[2019-03-21 05:27] LABS: PT Patient Result 24.6 SECS
[2019-03-21 05:34] LABS: Calcium 7.8 MG/DL (8.5-10.1); Osmolality,Calculated 261.4 MOS/KG (273-304)
[2019-03-21] MEDS: SODIUM CHLORIDE 0.9% 1,000 ML IV SCH (06:15)
[2019-03-21] MEDS: LEVOTHYROXINE 88 MCG TABLET PO SCH (06:40)
[2019-03-21] MEDS: MUPIROCIN 2% OINT 22 GM TUBE TOP SCH ×3 (08:46→20:30)
[2019-03-21] MEDS: PANTOPRAZOLE 40 MG TABLET PO SCH (08:46)
[2019-03-21] MEDS: SODIUM CHLORIDE 0.65% NASAL SPRAY 45 ML BOTTLE BOTH NARES SCH ×3 (08:46→20:30)
[2019-03-21] MEDS: NYSTATIN 500,000 UNIT/5 ML UDCUP SWISH/SWAL SCH ×4 (08:46→20:25)
[2019-03-21] MEDS: MAGNESIUM CHLORIDE 64 MG TABLET PO SCH (08:47)
[2019-03-21] MEDS: POLYETHYLENE GLYCOL POWDER 17 GM PACK PO SCH ×2 (08:47→20:25)
[2019-03-21] MEDS: DOCUSATE SODIUM 100 MG CAPSULE PO SCH ×2 (08:47→20:25)
[2019-03-21] MEDS: PARoxetine 10 MG TABLET PO SCH (08:47)
[2019-03-21] MEDS: COLCHICINE 0.6 MG CAPSULE PO SCH ×2 (08:47→20:24)
[2019-03-21] MEDS: TAMSULOSIN 0.4 MG CAPSULE PO SCH (08:47)
[2019-03-21] MEDS: ROTIGOTINE TRANSDERM SCH (08:47)
[2019-03-21] MEDS: CARVEDILOL 6.25 MG TABLET PO SCH ×2 (08:47→20:25)
[2019-03-21] MEDS: FUROSEMIDE 40 MG TABLET PO SCH (08:47)
[2019-03-21] MEDS ORDERED: HEPARIN 5,000 UNIT/1 ML VIAL IV ONE (13:28)
[2019-03-21] MEDS ORDERED: PARoxetine 20 MG TABLET PO SCH (14:53)
[2019-03-21] MEDS: HEPARIN DRIP 25,000 UNITS/500 ML PREMIX IV SCH (14:57)
[2019-03-21] MEDS: ACETAMINOPHEN 325 MG TABLET PO PRN (20:24)
[2019-03-21] MEDS: MELATONIN 3 MG TABLET PO SCH (20:25)
[2019-03-21] MEDS: CYPROHEPTADINE 4 MG TABLET PO SCH (20:25)
[2019-03-22] MEDS: cefTRIAXone 1,000 MG in SYRINGE 1 EACH IV SCH ×2 (00:09→23:30)
[2019-03-22 02:23] LABS: Basophils % 0.4 % (0.0-0.8); Eosinophils # 0.7 10*3/uL (0.0-0.87); Eosinophils % 7.2 % (0.00-10.9); Hematocrit 26.8 VOL% (42.0-52.0); Hemoglobin 8.5 GM/DL (14.0-18.0); Immature Granulocytes % 2.6 %; Immature Granulocytes Absolute 0.25 #; Lymphocytes # 1.2 10*3/uL (1.4-4.0); Lymphocytes % 12.4 % (21.2-54.2); Mean Corpuscular HGB Conc 31.7 GM/DL (32-36); Mean Corpuscular Volume 94.4 FL (87-102); Monocytes % 13.1 % (1.7-12.7); Neutrophils % 64.3 % (38.7-73.9); Platelet Count 273 T/CUMM (130-400); Red Blood Count 2.84 MC/CUMM (3.8-5.5); Red Cell Distribution Width 15.2 % (9.3-17.3); White Blood Count 9.4 T/CUMM (4-12)
[2019-03-22 02:30] LABS: INR 1.4; PT Patient Result 15.2 SECS
[2019-03-22 02:48] LABS: Calcium 7.6 MG/DL (8.5-10.1); Osmolality,Calculated 267.8 MOS/KG (273-304)
[2019-03-22] MEDS: SODIUM CHLORIDE 0.9% 1,000 ML IV SCH ×4 (03:07→23:22)
[2019-03-22] MEDS: LEVOTHYROXINE 88 MCG TABLET PO SCH (06:05)
[2019-03-22] MEDS: MAGNESIUM CHLORIDE 64 MG TABLET PO SCH (09:27)
[2019-03-22] MEDS: NYSTATIN 500,000 UNIT/5 ML UDCUP SWISH/SWAL SCH ×4 (09:27→20:29)
[2019-03-22] MEDS: COLCHICINE 0.6 MG CAPSULE PO SCH ×2 (09:27→20:28)
[2019-03-22] MEDS: TAMSULOSIN 0.4 MG CAPSULE PO SCH (09:27)
[2019-03-22] MEDS: CYPROHEPTADINE 4 MG TABLET PO SCH (09:28)
[2019-03-22] MEDS: POLYETHYLENE GLYCOL POWDER 17 GM PACK PO SCH ×2 (09:28→20:29)
[2019-03-22] MEDS: PANTOPRAZOLE 40 MG TABLET PO SCH (09:28)
[2019-03-22] MEDS: ROTIGOTINE TRANSDERM SCH (09:28)
[2019-03-22] MEDS: FUROSEMIDE 40 MG TABLET PO SCH (09:28)
[2019-03-22] MEDS: CARVEDILOL 6.25 MG TABLET PO SCH ×2 (09:28→21:39)
[2019-03-22] MEDS: DOCUSATE SODIUM 100 MG CAPSULE PO SCH ×2 (09:28→20:29)
[2019-03-22] MEDS: MUPIROCIN 2% OINT 22 GM TUBE TOP SCH ×3 (09:29→20:27)
[2019-03-22] MEDS: SODIUM CHLORIDE 0.65% NASAL SPRAY 45 ML BOTTLE BOTH NARES SCH ×3 (09:29→20:29)
[2019-03-22] MEDS: HEPARIN DRIP 25,000 UNITS/500 ML PREMIX IV SCH (13:51)
[2019-03-22] MEDS: ACETAMINOPHEN 325 MG TABLET PO PRN (18:33)
[2019-03-22] MEDS: MIRTAZAPINE 15 MG TABLET PO SCH (20:27)
[2019-03-22] MEDS: MELATONIN 3 MG TABLET PO SCH (20:28)
[2019-03-23 04:05] LABS: Basophils # 0.1 10*3/uL (0.0-0.2); Basophils % 0.6 % (0.0-0.8); Eosinophils # 0.8 10*3/uL (0.0-0.87); Eosinophils % 7.6 % (0.00-10.9); Hemoglobin 8.9 GM/DL (14.0-18.0); Immature Granulocytes % 3.8 %; Lymphocytes # 1.4 10*3/uL (1.4-4.0); Mean Corpuscular HGB Conc 31.8 GM/DL (32-36); Mean Corpuscular Volume 94.9 FL (87-102); Mean Platelet Volume 9.8 FL (9.6-12.0); Monocytes % 12.7 % (1.7-12.7); Neutrophils % 62.3 % (38.7-73.9); Platelet Count 289 T/CUMM (130-400); Red Blood Count 2.95 MC/CUMM (3.8-5.5); Red Cell Distribution Width 15.6 % (9.3-17.3); White Blood Count 10.6 T/CUMM (4-12)
[2019-03-23 04:18] LABS: INR 1.3; PT Patient Result 13.7 SECS
[2019-03-23 04:39] LABS: Calcium 7.8 MG/DL (8.5-10.1); Osmolality,Calculated 268.7 MOS/KG (273-304)
[2019-03-23] MEDS: LEVOTHYROXINE 88 MCG TABLET PO SCH (06:10)
[2019-03-23] MEDS: SODIUM CHLORIDE 0.9% 1,000 ML IV SCH ×3 (06:11→23:17)
[2019-03-23] MEDS ORDERED: LACTATED RINGERS 500 ML IV SCH (08:00)
[2019-03-23] MEDS: CARVEDILOL 6.25 MG TABLET PO SCH ×2 (09:20→21:14)
[2019-03-23] MEDS ORDERED: ETOMIDATE 20 MG/10 ML VIAL IV ONE (10:00)
[2019-03-23] MEDS ORDERED: PROPOFOL 200 MG/20 ML VIAL IV ONE (10:00)
[2019-03-23] MEDS ORDERED: LIDOCAINE 2% 5 ML VIAL ONE (10:00)
[2019-03-23] MEDS ORDERED: MIDAZOLAM 2 MG/2 ML VIAL ONE (11:03)
[2019-03-23] MEDS: DOCUSATE SODIUM 100 MG CAPSULE PO SCH ×2 (12:10→21:14)
[2019-03-23] MEDS: POLYETHYLENE GLYCOL POWDER 17 GM PACK PO SCH ×2 (12:10→21:15)
[2019-03-23] MEDS: COLCHICINE 0.6 MG CAPSULE PO SCH ×2 (12:10→21:14)
[2019-03-23] MEDS: MUPIROCIN 2% OINT 22 GM TUBE TOP SCH ×3 (12:10→21:14)
[2019-03-23] MEDS: PANTOPRAZOLE 40 MG TABLET PO SCH (12:11)
[2019-03-23] MEDS: MAGNESIUM CHLORIDE 64 MG TABLET PO SCH (12:11)
[2019-03-23] MEDS: NYSTATIN 500,000 UNIT/5 ML UDCUP SWISH/SWAL SCH ×4 (12:11→21:14)
[2019-03-23] MEDS: SODIUM CHLORIDE 0.65% NASAL SPRAY 45 ML BOTTLE BOTH NARES SCH ×3 (12:11→21:15)
[2019-03-23] MEDS: TAMSULOSIN 0.4 MG CAPSULE PO SCH (14:34)
[2019-03-23] MEDS: FUROSEMIDE 40 MG TABLET PO SCH (14:34)
[2019-03-23] MEDS: ROTIGOTINE TRANSDERM SCH (14:34)
[2019-03-23 16:02] LABS: INR 1.2; PT Patient Result 13.2 SECS
[2019-03-23] MEDS: WARFARIN 7.5 MG TABLET PO SCH (18:11)
[2019-03-23] MEDS: MELATONIN 3 MG TABLET PO SCH (21:14)
[2019-03-23] MEDS: MIRTAZAPINE 15 MG TABLET PO SCH (21:14)
[2019-03-23] MEDS: ACETAMINOPHEN 325 MG TABLET PO PRN (21:20)
[2019-03-24] MEDS: cefTRIAXone 1,000 MG in SYRINGE 1 EACH IV SCH ×2 (00:35→23:52)
[2019-03-24] MEDS: HEPARIN DRIP 25,000 UNITS/500 ML PREMIX IV SCH ×2 (02:25→13:49)
[2019-03-24 05:09] LABS: Basophils # 0.1 10*3/uL (0.0-0.2); Basophils % 0.8 % (0.0-0.8); Eosinophils # 0.8 10*3/uL (0.0-0.87); Eosinophils % 8.6 % (0.00-10.9); Hematocrit 27.7 VOL% (42.0-52.0); Hemoglobin 8.8 GM/DL (14.0-18.0); Immature Granulocytes % 4.2 %; Immature Granulocytes Absolute 0.41 #; Lymphocytes # 1.3 10*3/uL (1.4-4.0); Lymphocytes % 12.9 % (21.2-54.2); Mean Corpuscular HGB Conc 31.8 GM/DL (32-36); Mean Corpuscular Volume 95.5 FL (87-102); Monocytes % 13.6 % (1.7-12.7); Neutrophils % 59.9 % (38.7-73.9); Platelet Count 272 T/CUMM (130-400); Red Cell Distribution Width 15.9 % (9.3-17.3); White Blood Count 9.7 T/CUMM (4-12)
[2019-03-24 05:16] LABS: INR 1.2; PT Patient Result 13.4 SECS
[2019-03-24 05:41] LABS: Osmolality,Calculated 271.2 MOS/KG (273-304)
[2019-03-24] MEDS: LEVOTHYROXINE 88 MCG TABLET PO SCH (08:43)
[2019-03-24] MEDS: FUROSEMIDE 40 MG TABLET PO SCH (08:44)
[2019-03-24] MEDS: NYSTATIN 500,000 UNIT/5 ML UDCUP SWISH/SWAL SCH ×4 (08:44→20:51)
[2019-03-24] MEDS: MAGNESIUM CHLORIDE 64 MG TABLET PO SCH (08:44)
[2019-03-24] MEDS: DOCUSATE SODIUM 100 MG CAPSULE PO SCH ×2 (08:44→20:52)
[2019-03-24] MEDS: PANTOPRAZOLE 40 MG TABLET PO SCH (08:44)
[2019-03-24] MEDS: COLCHICINE 0.6 MG CAPSULE PO SCH ×2 (08:44→20:52)
[2019-03-24] MEDS: TAMSULOSIN 0.4 MG CAPSULE PO SCH (08:44)
[2019-03-24] MEDS: CARVEDILOL 6.25 MG TABLET PO SCH ×2 (08:44→20:53)
[2019-03-24] MEDS: POLYETHYLENE GLYCOL POWDER 17 GM PACK PO SCH ×2 (08:45→20:51)
[2019-03-24] MEDS: SODIUM CHLORIDE 0.65% NASAL SPRAY 45 ML BOTTLE BOTH NARES SCH ×3 (08:45→20:53)
[2019-03-24] MEDS: MUPIROCIN 2% OINT 22 GM TUBE TOP SCH ×3 (08:45→20:53)
[2019-03-24] MEDS: SODIUM CHLORIDE 0.9% 1,000 ML IV SCH (12:19)
[2019-03-24] MEDS: ROTIGOTINE TRANSDERM SCH (14:21)
[2019-03-24] MEDS: WARFARIN 7.5 MG TABLET PO SCH (17:36)
[2019-03-24] MEDS: MELATONIN 3 MG TABLET PO SCH (20:51)
[2019-03-24] MEDS: ONDANSETRON 4 MG/2 ML VIAL IV PRN (20:51)
[2019-03-24] MEDS: MIRTAZAPINE 15 MG TABLET PO SCH (20:52)
[2019-03-25] MEDS: HEPARIN DRIP 25,000 UNITS/500 ML PREMIX IV SCH (03:38)
[2019-03-25 04:28] LABS: INR 1.4; PT Patient Result 15.1 SECS
[2019-03-25] MEDS: LEVOTHYROXINE 88 MCG TABLET PO SCH (06:32)
[2019-03-25] MEDS: PANTOPRAZOLE 40 MG TABLET PO SCH (08:55)
[2019-03-25] MEDS: TAMSULOSIN 0.4 MG CAPSULE PO SCH (08:55)
[2019-03-25] MEDS: NYSTATIN 500,000 UNIT/5 ML UDCUP SWISH/SWAL SCH ×4 (08:55→21:25)
[2019-03-25] MEDS: FUROSEMIDE 40 MG TABLET PO SCH (08:55)
[2019-03-25] MEDS: MAGNESIUM CHLORIDE 64 MG TABLET PO SCH (08:55)
[2019-03-25] MEDS: DOCUSATE SODIUM 100 MG CAPSULE PO SCH ×2 (08:55→21:25)
[2019-03-25] MEDS: COLCHICINE 0.6 MG CAPSULE PO SCH ×2 (08:55→21:25)
[2019-03-25] MEDS: CARVEDILOL 6.25 MG TABLET PO SCH ×2 (08:55→21:26)
[2019-03-25] MEDS: MUPIROCIN 2% OINT 22 GM TUBE TOP SCH ×3 (08:56→21:32)
[2019-03-25] MEDS: SODIUM CHLORIDE 0.65% NASAL SPRAY 45 ML BOTTLE BOTH NARES SCH ×3 (08:56→21:32)
[2019-03-25] MEDS: POLYETHYLENE GLYCOL POWDER 17 GM PACK PO SCH ×2 (11:00→21:24)
[2019-03-25] MEDS: ROTIGOTINE TRANSDERM SCH (14:10)
[2019-03-25] MEDS: ACETAMINOPHEN 325 MG TABLET PO PRN (15:02)
[2019-03-25] MEDS: WARFARIN 7.5 MG TABLET PO SCH (17:17)
[2019-03-25] MEDS ORDERED: WARFARIN 2.5 MG TABLET PO ONE (18:17)
[2019-03-25] MEDS: ONDANSETRON 4 MG/2 ML VIAL IV PRN (21:24)
[2019-03-25] MEDS: MELATONIN 3 MG TABLET PO SCH (21:25)
[2019-03-25] MEDS: MIRTAZAPINE 15 MG TABLET PO SCH (21:25)
[2019-03-26] MEDS: cefTRIAXone 1,000 MG in SYRINGE 1 EACH IV SCH ×2 (00:55→23:49)
[2019-03-26] MEDS: HEPARIN DRIP 25,000 UNITS/500 ML PREMIX IV SCH (00:58)
[2019-03-26 06:01] LABS: INR 1.7; PT Patient Result 18.2 SECS
[2019-03-26 06:08] LABS: Basophils # 0.1 10*3/uL (0.0-0.2); Basophils % 1.1 % (0.0-0.8); Eosinophils # 0.8 10*3/uL (0.0-0.87); Eosinophils % 9.7 % (0.00-10.9); Hematocrit 27.6 VOL% (42.0-52.0); Hemoglobin 8.6 GM/DL (14.0-18.0); Immature Granulocytes % 2.7 %; Immature Granulocytes Absolute 0.21 #; Lymphocytes # 1.3 10*3/uL (1.4-4.0); Lymphocytes % 16.4 % (21.2-54.2); Mean Corpuscular HGB Conc 31.2 GM/DL (32-36); Mean Corpuscular Volume 97.2 FL (87-102); Mean Platelet Volume 9.5 FL (9.6-12.0); Monocytes % 16.3 % (1.7-12.7); Neutrophils % 53.8 % (38.7-73.9); Platelet Count 230 T/CUMM (130-400); Red Blood Count 2.84 MC/CUMM (3.8-5.5); Red Cell Distribution Width 16.4 % (9.3-17.3); White Blood Count 7.9 T/CUMM (4-12)
[2019-03-26 06:21] LABS: Calcium 7.9 MG/DL (8.5-10.1); Osmolality,Calculated 274.8 MOS/KG (273-304)
[2019-03-26] MEDS: LEVOTHYROXINE 88 MCG TABLET PO SCH (06:44)
[2019-03-26 07:22] LABS: Eosinophils 17 % (0-10); Lymphocytes 21 % (20-55); Segmented Neutrophils 55 % (50-85); Total Cells Counted 100
[2019-03-26 07:23] LABS: Hypochromasia 1+; Ovalocytes Slight; Platelet Estimate Adequate
[2019-03-26] MEDS: DOCUSATE SODIUM 100 MG CAPSULE PO SCH ×2 (08:43→21:27)
[2019-03-26] MEDS: POLYETHYLENE GLYCOL POWDER 17 GM PACK PO SCH ×2 (08:43→21:27)
[2019-03-26] MEDS: TAMSULOSIN 0.4 MG CAPSULE PO SCH (08:45)
[2019-03-26] MEDS: NYSTATIN 500,000 UNIT/5 ML UDCUP SWISH/SWAL SCH ×4 (08:45→21:23)
[2019-03-26] MEDS: COLCHICINE 0.6 MG CAPSULE PO SCH ×2 (08:45→21:22)
[2019-03-26] MEDS: FUROSEMIDE 40 MG TABLET PO SCH (08:45)
[2019-03-26] MEDS: MAGNESIUM CHLORIDE 64 MG TABLET PO SCH (08:45)
[2019-03-26] MEDS: MUPIROCIN 2% OINT 22 GM TUBE TOP SCH ×3 (08:45→21:26)
[2019-03-26] MEDS: ROTIGOTINE TRANSDERM SCH ×3 (08:45→14:56)
[2019-03-26] MEDS: PANTOPRAZOLE 40 MG TABLET PO SCH (08:45)
[2019-03-26] MEDS: CARVEDILOL 6.25 MG TABLET PO SCH ×2 (08:45→21:22)
[2019-03-26] MEDS: SODIUM CHLORIDE 0.65% NASAL SPRAY 45 ML BOTTLE BOTH NARES SCH ×3 (08:46→21:27)
[2019-03-26] MEDS: MENTHOL/ZINC OXIDE OINT 71 GM JAR TOP SCH ×2 (17:19→21:27)
[2019-03-26] MEDS: WARFARIN 7.5 MG TABLET PO SCH (18:31)
[2019-03-26] MEDS: MELATONIN 3 MG TABLET PO SCH (21:22)
[2019-03-26] MEDS: MIRTAZAPINE 15 MG TABLET PO SCH (21:22)
[2019-03-27] MEDS: HEPARIN DRIP 25,000 UNITS/500 ML PREMIX IV SCH (03:34)
[2019-03-27 04:27] LABS: Basophils # 0.1 10*3/uL (0.0-0.2); Basophils % 0.6 % (0.0-0.8); Eosinophils # 0.6 10*3/uL (0.0-0.87); Hematocrit 29.2 VOL% (42.0-52.0); Hemoglobin 8.8 GM/DL (14.0-18.0); Immature Granulocytes % 1.4 %; Immature Granulocytes Absolute 0.11 #; Lymphocytes # 1.4 10*3/uL (1.4-4.0); Lymphocytes % 17.8 % (21.2-54.2); Mean Corpuscular HGB Conc 30.1 GM/DL (32-36); Mean Corpuscular Volume 96.4 FL (87-102); Mean Platelet Volume 9.7 FL (9.6-12.0); Monocytes % 17.9 % (1.7-12.7); Neutrophils % 55.3 % (38.7-73.9); Platelet Count 210 T/CUMM (130-400); Red Blood Count 3.03 MC/CUMM (3.8-5.5); Red Cell Distribution Width 16.6 % (9.3-17.3)
[2019-03-27 04:44] LABS: PT Patient Result 21.4 SECS
[2019-03-27 04:57] LABS: Calcium 7.7 MG/DL (8.5-10.1)
[2019-03-27 05:51] LABS: Anisocytosis 1+; Eosinophils 7 % (0-10); Lymphocytes 17 % (20-55); Macrocytosis Slight; Ovalocytes Slight; Platelet Estimate Adequate; Segmented Neutrophils 60 % (50-85); Total Cells Counted 100
[2019-03-27] MEDS: LEVOTHYROXINE 88 MCG TABLET PO SCH (06:22)
[2019-03-27] MEDS ORDERED: LOPERAMIDE 2 MG CAPSULE PO PRN (07:53)
[2019-03-27] MEDS: COLCHICINE 0.6 MG CAPSULE PO SCH ×2 (09:09→21:32)
[2019-03-27] MEDS: DOCUSATE SODIUM 100 MG CAPSULE PO SCH ×2 (09:09→21:31)
[2019-03-27] MEDS: FUROSEMIDE 40 MG TABLET PO SCH (09:09)
[2019-03-27] MEDS: MAGNESIUM CHLORIDE 64 MG TABLET PO SCH (09:09)
[2019-03-27] MEDS: CARVEDILOL 6.25 MG TABLET PO SCH ×2 (09:09→21:32)
[2019-03-27] MEDS: NYSTATIN 500,000 UNIT/5 ML UDCUP SWISH/SWAL SCH ×4 (09:09→21:32)
[2019-03-27] MEDS: TAMSULOSIN 0.4 MG CAPSULE PO SCH (09:09)
[2019-03-27] MEDS: MENTHOL/ZINC OXIDE OINT 71 GM JAR TOP SCH ×2 (09:10→21:33)
[2019-03-27] MEDS: SODIUM CHLORIDE 0.65% NASAL SPRAY 45 ML BOTTLE BOTH NARES SCH ×3 (09:10→21:33)
[2019-03-27] MEDS: MUPIROCIN 2% OINT 22 GM TUBE TOP SCH ×3 (09:10→21:32)
[2019-03-27] MEDS: PANTOPRAZOLE 40 MG TABLET PO SCH (09:10)
[2019-03-27] MEDS: ROTIGOTINE TRANSDERM SCH (14:27)
[2019-03-27] MEDS: MEGESTROL 400 MG/10 ML UDCUP PO SCH ×2 (14:28→21:32)
[2019-03-27] MEDS: WARFARIN 7.5 MG TABLET PO SCH (17:03)
[2019-03-27] MEDS: MIRTAZAPINE 15 MG TABLET PO SCH (21:32)
[2019-03-27] MEDS: MELATONIN 3 MG TABLET PO SCH (21:32)
[2019-03-28] MEDS ORDERED: ALBUTEROL/IPRATROPIUM 3 ML NEB RESP TX PRN (03:02)
[2019-03-28] MEDS: HEPARIN DRIP 25,000 UNITS/500 ML PREMIX IV SCH (03:44)
[2019-03-28] MEDS: LEVOTHYROXINE 88 MCG TABLET PO SCH (05:40)
[2019-03-28 05:43] LABS: Basophils # 0.1 10*3/uL (0.0-0.2); Basophils % 0.6 % (0.0-0.8); Eosinophils # 0.5 10*3/uL (0.0-0.87); Eosinophils % 6.2 % (0.00-10.9); Hematocrit 26.6 VOL% (42.0-52.0); Hemoglobin 8.4 GM/DL (14.0-18.0); Immature Granulocytes % 1.2 %; Lymphocytes # 1.4 10*3/uL (1.4-4.0); Lymphocytes % 16.5 % (21.2-54.2); Mean Corpuscular HGB Conc 31.6 GM/DL (32-36); Mean Corpuscular Volume 95.3 FL (87-102); Mean Platelet Volume 9.8 FL (9.6-12.0); Monocytes % 16.1 % (1.7-12.7); Neutrophils % 59.4 % (38.7-73.9); Platelet Count 187 T/CUMM (130-400); Red Blood Count 2.79 MC/CUMM (3.8-5.5); Red Cell Distribution Width 16.7 % (9.3-17.3); White Blood Count 8.5 T/CUMM (4-12)
[2019-03-28 05:52] LABS: INR 2.5
[2019-03-28 06:22] LABS: Anisocytosis 1+; Band Neutrophils 1 % (0-10); Eosinophils 6 % (0-10); Hypochromasia 1+; Lymphocytes 12 % (20-55); Metamyelocytes 1 %; Segmented Neutrophils 73 % (50-85); Total Cells Counted 100
[2019-03-28 06:23] LABS: Acanthocytes 1+; Ovalocytes Few; Platelet Estimate Adequate; Target Cells Few
[2019-03-28 06:53] LABS: Calcium 7.7 MG/DL (8.5-10.1)
[2019-03-28] MEDS: NYSTATIN 500,000 UNIT/5 ML UDCUP SWISH/SWAL SCH ×3 (09:36→18:29)
[2019-03-28] MEDS: CARVEDILOL 6.25 MG TABLET PO SCH (09:37)
[2019-03-28] MEDS: MAGNESIUM CHLORIDE 64 MG TABLET PO SCH (09:37)
[2019-03-28] MEDS: MEGESTROL 400 MG/10 ML UDCUP PO SCH (09:37)
[2019-03-28] MEDS: TAMSULOSIN 0.4 MG CAPSULE PO SCH (09:37)
[2019-03-28] MEDS: FUROSEMIDE 40 MG TABLET PO SCH (09:37)
[2019-03-28] MEDS: DOCUSATE SODIUM 100 MG CAPSULE PO SCH (09:37)
[2019-03-28] MEDS: PANTOPRAZOLE 40 MG TABLET PO SCH (09:37)
[2019-03-28] MEDS: COLCHICINE 0.6 MG CAPSULE PO SCH (09:37)
[2019-03-28] MEDS: SODIUM CHLORIDE 0.65% NASAL SPRAY 45 ML BOTTLE BOTH NARES SCH ×2 (09:38→15:45)
[2019-03-28] MEDS: MENTHOL/ZINC OXIDE OINT 71 GM JAR TOP SCH (09:38)
[2019-03-28] MEDS: MUPIROCIN 2% OINT 22 GM TUBE TOP SCH ×2 (09:38→15:44)
[2019-03-28] MEDS ORDERED: MAGNESIUM SULF RIDER 2 GM in PREMIX 1 EACH IV PRN (10:40)
[2019-03-28] MEDS ORDERED: MAGNESIUM SULF RIDER 4 GM in PREMIX 1 EACH IV PRN (10:40)
[2019-03-28] MEDS ORDERED: POTASSIUM CHLORIDE 20 MEQ TABLET PO SCH (11:00)
[2019-03-28] MEDS: ROTIGOTINE TRANSDERM SCH (15:22)
[2019-03-28 16:19] VITALS: BP 116/56
[2019-03-28] MEDS: WARFARIN 7.5 MG TABLET PO SCH (18:30)
== END 2019-03-28 18:53 | disposition swing bed (61) | DRG 291 ==
LOC: SUATTDRO 13:00 → N.4E 13:00
PROVIDERS: ADMIT Internal Medicine; ATTEND Hospitalist